=== PATIENT | female | born 1980 ===

== ENCOUNTER 2018-07-17 13:14 | Emergency (ER) | payer OTHER ==
[2018-07-17 13:47] VITALS: RESP 16
[2018-07-17 16:21] LABS: BASO # 0.1 K/uL (0.0-0.2); EOS # 0.1 K/uL (0.0-0.7); HEMOGLOBIN 12.8 g/dL (12.0-16.0); LYMPH # 3.1 K/uL (1.0-4.3); LYMPH % 25.5 % (20.0-40.0); MEAN CELL VOLUME 83.9 fl (81.0-99.0); MEAN CORPUSCULAR HEMOGLOBIN 27.9 pg (27.0-31.0); MEAN CORPUSCULAR HGB CONC 33.2 g/dL (33.0-37.0); MEAN PLATELET VOLUME 8.7 fl (7.2-11.7); MONO # 0.6 K/uL (0.0-0.8); MONO % 4.9 % (0.0-10.0); NEUT # 8.1 K/uL (1.8-7.0); NEUT % 67.6 % (50.0-75.0); NRBC % 0.1 % (0.0-0.0); RBC 4.6 Mil/uL (3.80-5.20); RED CELL DISTRIBUTION WIDTH 14.1 % (11.5-14.5); WHITE BLOOD COUNT 12.1 K/uL (4.8-10.8)
[2018-07-17 16:41] LABS: PROTHROMBIN TIME 11.2 Seconds (9.8-13.1)
--- NOTE | 2018-07-17 17:05 | US ---
Date of service: 07/17/2018 PROCEDURE: OB Pelvic Ultrasound HISTORY: Vaginal bleeding in COMPARISON: None available. FINDINGS: UTERUS: Single intrauterine gestational sac. Gestational sac diameter measures 0.5 cm too small to characterize gestational age. pole and yolk sac are not visualized. Desire-gestational hemorrhage: None. Uterus measures 9.5 x 5.1 x 7.3 cm. There is a 1.7 x 1.7 x 1.4 cm intramural fundal fibroid on the right and 8 x 5 x 6 mm calcified fibroid along the right lateral wall. CERVIX: Long and closed. No cervical abnormality seen. RIGHT OVARY: Measures 2.9 x 1.9 x 2.7 cm. No mass. Normal flow. There is a 1.8 x 0.8 x 1.3 cm corpus luteum cyst. LEFT OVARY: Measures 2.6 x 1.5 x 2.3 cm. No mass. Normal flow. FREE FLUID: None. OTHER FINDINGS: None. IMPRESSION: Single intrauterine gestational sac too small to characterize gestational age. pole and yolk sac are not visualized on the current examination. Clinical and ultrasound follow-up is recommended to assess viability. 1.7 cm intramural fundal fibroid and 8 mm calcified fibroid along the right lateral wall.
[2018-07-17 17:09] LABS: ALB/GLOB RATIO 1.3 (1.0-2.1); ALT/SGPT 40 U/L (9-52); AST/SGOT 33 U/L (14-36); BLOOD UREA NITROGEN 13 mg/dl (7-17); CALCIUM 9.2 mg/dL (8.4-10.2); GFR NON-AFRICAN AMERICAN > 60
--- NOTE | 2018-07-17 17:47 | ED PDOC ---
HPI: Female Pain Time Seen by Provider: 07/17/18 14:37 Chief Complaint (Nursing): Female Genitourinary Chief Complaint (Provider): Vaginal bleeding in History Per: Patient History/Exam Limitations: no limitations Onset/Duration Of Symptoms: Days Current Symptoms Are (Timing): Still Present Additional Complaint(s): 37 yo female, presents at 5 weeks gestion (LMP 06/07/18) for evaluation of suprapubic cramping and spotting. PT states she sees red blood coming from the vaginal when she wipes herself after urination. Pt states she has not made appointment with OB yet because her positive test was only w week ago. No fever/chills. Past Medical History Reviewed: Historical Data, Nursing Documentation, Vital Signs Vital Signs: Last Vital Signs Temp 98.6 F 07/17/18 13:44 Pulse 85 07/17/18 13:44 Resp 16 07/17/18 13:44 BP 140/72 07/17/18 13:44 Pulse Ox 99 07/17/18 13:44 - Medical History PMH: No Chronic Diseases - Surgical History Surgical History: Cholecystectomy - Family History Family History: States: No Known Family Hx - Living Arrangements Living Arrangements: With Family - Social History Current smoker - smoking cessation education provided: No - Allergies Allergies/Adverse Reactions: Allergies Allergy/AdvReac Type Severity Reaction Status Date / Time No Known Allergies Allergy Verified 07/17/18 13:44 Review of Systems ROS Statement: Except As Marked, All Systems Reviewed And Found Negative Constitutional: Negative for: Fever, Chills Gastrointestinal: Positive for: Abdominal Pain. Negative for: Nausea, Vomiting Genitourinary Female: Positive for: Vaginal Bleeding, Pelvic Pain. Negative for: Dysuria, Frequency, Vaginal Discharge Physical Exam - Reviewed Nursing Documentation Reviewed: Yes Vital Signs Reviewed: Yes - Physical Exam Appears: Positive for: Well, Non-toxic, No Acute Distress Head Exam: Positive for: ATRAUMATIC, NORMAL INSPECTION, NORMOCEPHALIC Skin: Positive for: Normal Color, Warm, DRY Eye Exam: Positive for: Normal appearance ENT: Positive for: Normal ENT Inspection Neck: Positive for: Normal, Painless ROM Cardiovascular/Chest: Positive for: Regular Rate, Rhythm Respiratory: Positive for: Normal Breath Sounds. Negative for: Accessory Muscle Use, Respiratory Distress Gastrointestinal/Abdominal: Positive for: Normal Exam, Soft. Negative for: Tenderness, Guarding, Rebound Back: Positive for: Normal Inspection Extremity: Positive for: Normal ROM Neurologic/Psych: Positive for: Alert, Oriented - Laboratory Results Result Diagrams: 07/17/18 16:06 07/17/18 16:06 - ECG O2 Sat by Pulse Oximetry: 99 Pulse Ox Interpretation: Normal Medical Decision Making Medical Decision Making: Beta Hc,038 US with gestational sac too small to characterize. Discussed early with patient and f/u in 2 days with OB for repeat labs. Disposition - Clinical Impression Clinical Impression: Bleeding in early - Patient ED Disposition Is Patient to be Admitted: No Counseled Patient/Family Regarding: Diagnosis, Need For Followup - Disposition Referrals: Sadie Castanon MD [Staff Provider] - Disposition: Routine/Home Disposition Time: 19:06 Condition: GOOD Additional Instructions: Please begin prenatals. Please follow-up with THERAPY SITE COORDINATOR in 2-3 days. Instructions: Bleeding With Forms: [facility] (Beninese) Print Language: ROMANIAN
[2018-07-17 19:40] VITALS: BP 118/68; PULSE 62; TEMP 97.9; O2SAT 100
== END 2018-07-17 19:40 | disposition home or self-care (01) ==
LOC: H.ER 13:14
DX: O46.90 Antepartum hemorrhage, unspecified, unspecified trimester (principal)

== ENCOUNTER 2018-08-16 09:09 | Emergency (ER) | payer SELFPAY ==
[2018-08-16 09:13] VITALS: BMI 24.1
[2018-08-16 09:15] VITALS: RESP 18; O2SAT 99
--- NOTE | 2018-08-16 10:34 | ED PDOC ---
HPI: Abdomen Time Seen by Provider: 08/16/18 09:25 Chief Complaint (Nursing): Female Genitourinary Chief Complaint (Provider): Lower abdominal pain and vaginal bleeding History Per: Patient History/Exam Limitations: no limitations Onset/Duration Of Symptoms: Days (vaginal bleeding x3; abdominal pain x1) Current Symptoms Are (Timing): Still Present Associated Symptoms: denies: Fever, Vomiting, Urinary Symptoms Additional Complaint(s): 37 year old female, who is , presents to the ED with lower abdominal pain and vaginal bleeding. Vaginal bleeding began on Sunday and abdominal pain began today. She reports bleeding was originally with blood clots but became dark discharge. She states she has lower abdominal pain and suprapubic pain which has been constant since this morning. Denies any urinary problems, fever, or vomiting. She reports she is 10 weeks . Patient did have an ultrasound for this in July which, patient thinks, did not show IUP. Patient has not begun care PMD: none Past Medical History Reviewed: Historical Data, Nursing Documentation, Vital Signs Vital Signs: Last Vital Signs Temp 99.1 F 08/16/18 09:14 Pulse 80 08/16/18 09:14 Resp 18 08/16/18 09:14 BP 113/74 08/16/18 09:14 Pulse Ox 99 08/16/18 09:14 - Medical History PMH: No Chronic Diseases - Surgical History Surgical History: Cholecystectomy - Family History Family History: States: Unknown Family Hx - Allergies Allergies/Adverse Reactions: Allergies Allergy/AdvReac Type Severity Reaction Status Date / Time No Known Allergies Allergy Verified 08/16/18 09:35 Review of Systems ROS Statement: Except As Marked, All Systems Reviewed And Found Negative Constitutional: Negative for: Fever Gastrointestinal: Positive for: Abdominal Pain. Negative for: Vomiting Genitourinary Female: Positive for: Vaginal Bleeding. Negative for: Dysuria, Hematuria Physical Exam - Reviewed Nursing Documentation Reviewed: Yes Vital Signs Reviewed: Yes - Physical Exam Appears: Positive for: Non-toxic, No Acute Distress Head Exam: Positive for: ATRAUMATIC, NORMOCEPHALIC Skin: Positive for: Normal Color, Warm, Dry Eye Exam: Positive for: Normal appearance Neck: Positive for: Normal, Painless ROM Cardiovascular/Chest: Positive for: Regular Rate, Rhythm Respiratory: Positive for: Normal Breath Sounds. Negative for: Wheezing, Respiratory Distress Gastrointestinal/Abdominal: Positive for: Tenderness (Suprapubic and LLQ te nderness) Extremity: Positive for: Normal ROM Neurologic/Psych: Positive for: Alert, Oriented. Negative for: Motor/Sensory Deficits - Laboratory Results Result Diagrams: 08/16/18 10:44 08/16/18 10:44 - ECG O2 Sat by Pulse Oximetry: 99 (RA) Pulse Ox Interpretation: Normal - Progress Re-evaluation Time: 12:59 Condition: Re-examined, Improved Medical Decision Making Medical Decision Making: Initial Impression: Abdominal pain and vaginal bleeding in female. Differential includes threatened miscarriage, spontaneous miscarriage, demise, UTI, and ovarian cysts Initial Plan: --ABO/RH type stat --Type and screen stat --BMP -- serum stat --ED urine --ED urine dipstick --CBC --OB transvaginal US 11:47 Transvaginal US FINDINGS: TECHNIQUE: Transvaginal ultrasonography of was performed in multiple projections and includes Doppler technique as well. UTERUS: Gestational sac: Single intrauterine gestation. Heart rate: 173 bpm. age (Ultrasound estimated): 9 weeks 5 days based on gestational sac and pole mean measurements of 4.35 and 2.85 respectively. Desire-gestational hemorrhage: There is questionable trace subchorionic hemorrhage anteriorly with no large hemorrhage evident nevertheless. Date of delivery (Ultrasound estimated) : 03/16/2019. Uterus measures 11.1 x 8.9 x 7.2 cm. Multiple uterine fibroids identified. A sub serosal fibroid is seen at the mid right fundus toward the right measuring 3.0 x 2.5 x 2.7 cm. A 2nd fibroid is identified sub serosal as well in the anterior mid fundus measuring 2.2 x 1.7 x 2.1 cm toward the left. Finally, a smaller partially calcified fibroid identified at the lower uterine segment sub serosal in location measuring 0.7 x 0.5 x 0.8 cm.. CERVIX: Measures 4.6 cm. Long and closed. No cervical abnormality seen. RIGHT OVARY: Measures 3.4 x 3.7 x 2.2 cm. No mass lesion. Normal flow. Corpus luteum cyst measures 2.3 cm greatest dimension. LEFT OVARY: Measures 4.0 x 2.4 x 1.9 cm. No solid mass. Normal flow. FREE FLUID: None. OTHER FINDINGS: None. IMPRESSION: A single viable intrauterine gestation is identified with average ultrasonic age of 9 weeks 5 days indicating normal interval growth, not previously seen on prior transvaginal pelvic ultrasound 07/17/2018. This is concordant with menstrual dates as well. Trace anterior subchorionic hemorrhage is suggested. Clinical correlation and potential follow-up ultrasound are advised. Four subserosal fibroids are identified at the uterine fundus as discussed above. Scribe Attestation: Documented by Meliton Reed acting as a scribe for Kelle Bell MD. Provider Scribe Attestation: All medical record entries made by the Scribe were at my direction and personally dictated by me. I have reviewed the chart and agree that the record accurately reflects my personal performance of the history, physical exam, [facility] decision making, and the department course for this patient. I have also personally directed, reviewed, and agree with the discharge instructions and disposition. Disposition - Clinical Impression Clinical Impression: Threatened , Subchorionic hemorrhage in first trimester, Uterine fibroid - Patient ED Disposition Is Patient to be Admitted: No Doctor Will See Patient In The: Office Counseled Patient/Family Regarding: Studies Performed, Diagnosis - Disposition Referrals: [facility] [Outside] Disposition: Routine/Home Disposition Time: 13:01 Condition: GOOD Additional Instructions: JERRI ROMAN, thank you for letting us take care of you today. Your provider was Kelle Bell MD and you were treated for 10 WEEKS,FEMALE GENITOURINARY. The emergency medical care you received today was directed at your acute symptoms. If you were prescribed any medication, please fill it and take as directed. It may take several days for your symptoms to resolve. Return to the Emergency Department if your symptoms worsen, do not improve, or if you have any other problems. Please contact your doctor or call one of the physicians/clinics you have been referred to that are listed on the Patient Visit Information form that is included in your discharge packet. Bring any paperwork you were given at discharge with you along with any medications you are taking to your follow up visit. Our treatment cannot replace ongoing medical care by a primary care marissa brumfield outside of the emergency department. Thank you for allowing the [facility] team to be part of your care today. If you had an X-Ray or CT scan: A Radiologist will review the ED reading if any change in treatment is needed we will contact you. If you had a blood, urine, or wound culture: It will take several days for the results, if any change in treatment is needed we will contact you. If you had an STI test: It will take 48 hours for the results. Please call after 1 week if you have not heard back. Instructions: Uterine Fibroids, Threatened Miscarriage Print Language: MARTINIQUAIS
[2018-08-16 10:50] LABS: BASO # 0.1 K/uL (0.0-0.2); BASO % 0.5 % (0.0-2.0); EOS # 0.1 K/uL (0.0-0.7); EOS % 0.9 % (0.0-4.0); HEMOGLOBIN 12.4 g/dL (12.0-16.0); LYMPH # 2.4 K/uL (1.0-4.3); LYMPH % 23.7 % (20.0-40.0); MEAN CELL VOLUME 84.3 fl (81.0-99.0); MEAN CORPUSCULAR HEMOGLOBIN 28.2 pg (27.0-31.0); MEAN CORPUSCULAR HGB CONC 33.4 g/dL (33.0-37.0); MEAN PLATELET VOLUME 8.2 fl (7.2-11.7); MONO # 0.6 K/uL (0.0-0.8); MONO % 5.9 % (0.0-10.0); RBC 4.41 Mil/uL (3.80-5.20); WHITE BLOOD COUNT 10.1 K/uL (4.8-10.8)
[2018-08-16 10:58] LABS: BLOOD UREA NITROGEN 12 mg/dl (7-17); CALCIUM 9.7 mg/dL (8.4-10.2); GFR NON-AFRICAN AMERICAN > 60
--- NOTE | 2018-08-16 11:51 | US ---
Date of service: 08/16/2018 PROCEDURE: OB Pelvic Ultrasound HISTORY: lower abd pain vag bleeding LMP: 06/06/2018 suggesting gestation of 10 weeks 1 day. COMPARISON: Transvaginal pelvic ultrasound 07/17/2018. FINDINGS: TECHNIQUE: Transvaginal ultrasonography of was performed in multiple projections and includes Doppler technique as well. UTERUS: Gestational sac: Single intrauterine gestation. Heart rate: 173 bpm. age (Ultrasound estimated): 9 weeks 5 days based on gestational sac and pole mean measurements of 4.35 and 2.85 respectively. Desire-gestational hemorrhage: There is questionable trace subchorionic hemorrhage anteriorly with no large hemorrhage evident nevertheless. Date of delivery (Ultrasound estimated) : 03/16/2019. Uterus measures 11.1 x 8.9 x 7.2 cm. Multiple uterine fibroids identified. A sub serosal fibroid is seen at the mid right fundus toward the right measuring 3.0 x 2.5 x 2.7 cm. A 2nd fibroid is identified sub serosal as well in the anterior mid fundus measuring 2.2 x 1.7 x 2.1 cm toward the left. Finally, a smaller partially calcified fibroid identified at the lower uterine segment sub serosal in location measuring 0.7 x 0.5 x 0.8 cm.. CERVIX: Measures 4.6 cm. Long and closed. No cervical abnormality seen. RIGHT OVARY: Measures 3.4 x 3.7 x 2.2 cm. No mass lesion. Normal flow. Corpus luteum cyst measures 2.3 cm greatest dimension. LEFT OVARY: Measures 4.0 x 2.4 x 1.9 cm. No solid mass. Normal flow. FREE FLUID: None. OTHER FINDINGS: None. IMPRESSION: A single viable intrauterine gestation is identified with average ultrasonic age of 9 weeks 5 days indicating normal interval growth, not previously seen on prior transvaginal pelvic ultrasound 07/17/2018. This is concordant with menstrual dates as well. Trace anterior subchorionic hemorrhage is suggested. Clinical correlation and potential follow-up ultrasound are advised. Four subserosal fibroids are identified at the uterine fundus as discussed above.
[2018-08-16 13:49] VITALS: BP 114/77; PULSE 89; TEMP 98
== END 2018-08-16 13:51 | disposition home or self-care (01) ==
LOC: H.ER 09:09
DX: O20.0 Threatened abortion (principal); O34.11 Maternal care for benign tumor of corpus uteri, first trimester; D25.2 Subserosal leiomyoma of uterus; Z3A.09 9 weeks gestation of pregnancy

== ENCOUNTER 2018-08-28 10:32 | Emergency (ER) | payer SELFPAY ==
[2018-08-28 10:32] VITALS: BMI 24.1
[2018-08-28] MEDS ORDERED: Sodium Chloride 0.9% 1,000 ML IV STA (11:49)
--- NOTE | 2018-08-28 12:55 | ED PDOC ---
HPI: Abdomen Time Seen by Provider: 08/28/18 11:30 Chief Complaint (Nursing): Abdominal Pain Chief Complaint (Provider): Abdominal Pain History Per: Patient Location Of Pain/Discomfort: Suprapubic Associated Symptoms: Urinary Symptoms (burning sensation while urinating). denies: Fever, Chills, Nausea, Vomiting Additional Complaint(s): Megan Wick is a 37 year old female with a past medical history of , who presents to the emergency department complaining of vaginal bleeding that consists of clots, associated with lower abdominal pain. Patient has been to the ED x2 previous times for vaginal bleeding during and has been discharged each time after evaluation. She is more concerned today because of the type of blood and the quantity of clots. Patient further states that she has had a burning sensation while she urinates. She further states that she is not on any medications and that her care doctor is the [facility]. Patient denies any fever, chills, nausea or vomiting. PMD: [facility] Past Medical History Reviewed: Historical Data, Nursing Documentation, Vital Signs Vital Signs: Last Vital Signs Temp 98.6 F 08/28/18 10:46 Pulse 74 08/28/18 10:46 Resp 18 08/28/18 10:46 BP 123/77 08/28/18 10:46 Pulse Ox 98 08/28/18 11:02 - Medical History PMH: No Chronic Diseases Denies: Chronic Kidney Disease - Surgical History Surgical History: Cholecystectomy - Family History Family History: States: Unknown Family Hx - Social History Current smoker - smoking cessation education provided: No Ex-Smoker (has not smoked in the last 12 months): No Alcohol: None - Allergies Allergies/Adverse Reactions: Allergies Allergy/AdvReac Type Severity Reaction Status Date / Time No Known Allergies Allergy Verified 08/16/18 09:35 Review of Systems ROS Statement: Except As Marked, All Systems Reviewed And Found Negative Constitutional: Negative for: Fever, Chills Gastrointestinal: Positive for: Abdominal Pain. Negative for: Nausea, Vomiting Genitourinary Female: Positive for: Vaginal Bleeding, Other (burning sensation while urinating) Physical Exam - Reviewed Nursing Documentation Reviewed: Yes Vital Signs Reviewed: Yes - Physical Exam Appears: Positive for: Non-toxic, No Acute Distress Head Exam: Positive for: ATRAUMATIC, NORMOCEPHALIC Skin: Positive for: Normal Color, Warm, Dry Eye Exam: Positive for: Normal appearance, EOMI, PERRL ENT: Positive for: Normal ENT Inspection Neck: Positive for: Normal, Painless ROM, Supple Cardiovascular/Chest: Positive for: Regular Rate, Rhythm. Negative for: Murmur Respiratory: Positive for: Normal Breath Sounds. Negative for: Respiratory Distress Gastrointestinal/Abdominal: Positive for: Tenderness (mild suprapubic discomfort) Back: Negative for: L CVA Tenderness, R CVA Tenderness Extremity: Positive for: Normal ROM. Negative for: Pedal Edema, Deformity Neurologic/Psych: Positive for: Alert, Oriented. Negative for: Motor/Sensory Deficits - ECG O2 Sat by Pulse Oximetry: 98 (RA) Pulse Ox Interpretation: Normal Medical Decision Making Medical Decision Making: Time: 1149 Impression: Vaginal bleeding --Rule out termination vs. spontaneous miscarriage Plan: --CMP --CBC with differential --Glucose, blood POC --Urinalysis --OB transvaginal US --IV insertion --Sodium chloride 1,000 ml Scribe Attestation: Documented by Robert Day, acting as a scribe for Karly Rivera MD. Provider Scribe Attestation: All medical record entries made by the Scribe were at my direction and personally dictated by me. I have reviewed the chart and agree that the record accurately reflects my personal performance of the history, physical exam, medical decision making, and the department course for this patient. I have also personally directed, reviewed, and agree with the discharge instructions and disposition. Disposition - Disposition Condition: FAIR
[2018-08-28 13:09] LABS: BASO # 0.1 K/uL (0.0-0.2); BASO % 0.7 % (0.0-2.0); EOS # 0.1 K/uL (0.0-0.7); HEMOGLOBIN 12.4 g/dL (12.0-16.0); LYMPH # 2.6 K/uL (1.0-4.3); LYMPH % 26.7 % (20.0-40.0); MEAN CELL VOLUME 87.4 fl (81.0-99.0); MEAN CORPUSCULAR HEMOGLOBIN 28.7 pg (27.0-31.0); MEAN CORPUSCULAR HGB CONC 32.8 g/dL (33.0-37.0); MEAN PLATELET VOLUME 8.4 fl (7.2-11.7); MONO # 0.6 K/uL (0.0-0.8); MONO % 6.6 % (0.0-10.0); NEUT # 6.4 K/uL (1.8-7.0); NRBC % 0.1 % (0.0-0.0); RBC 4.32 Mil/uL (3.80-5.20); WHITE BLOOD COUNT 9.8 K/uL (4.8-10.8)
[2018-08-28 13:20] LABS: ALB/GLOB RATIO 1.1 (1.0-2.1); ALBUMIN 3.8 g/dL (3.5-5.0); ALT/SGPT 30 U/L (9-52); AST/SGOT 18 U/L (14-36); BLOOD UREA NITROGEN 8 mg/dl (7-17); CALCIUM 9.2 mg/dL (8.4-10.2); GFR NON-AFRICAN AMERICAN > 60
--- NOTE | 2018-08-28 13:36 | US ---
Date of service: 08/28/2018 HISTORY: with vaginal bleeding, clots.. LMP 06/06/2018. COMPARISON: None available. TECHNIQUE: 08/16/2018 transvaginal FINDINGS: UTERUS: Measures 12.6 x 9.6 x 8.8 cm. A right fundal fibroid is suggested measuring 2.8 x 2.7 x 2.4 cm-this is unchanged.. Is also is slightly n anterior right uterine upper body/bordering fundal fibroid in location. The prior anterior subserosal fibroid with calcification currently measures 1.7 x 1.4 x 0.9 cm. Overall size is are similar to that mention previously. An intrauterine gestation with cardiac activity is present. heartbeat is 159 beats per minute. Gestational sac, yolk sac pole all present. These biometric parameters correspond to an 11 week 2 to 5 day gestation. There is suggestion of normal physiologic chorio amniotic separation noted on this exam as well. CERVIX: Closed at 4.3 cm in length RIGHT OVARY: Measures 4.1 x 2.1 x 1.8 cm. Corpus luteal focus suggested 1.9 x 1.5 x 1.1 cm. No worrisome appearing mass on the right seen. Normal flow seen. LEFT OVARY: Left ovary not visualized. FREE FLUID: No significant free fluid noted. OTHER FINDINGS: None. IMPRESSION: Single intrauterine gestation with normal cardiac activity whose biometrics correspond to an ultrasound age of 11 weeks 4 days +/-0 weeks 6 days. Estimated date of delivery is 03/15/2019 by ultrasound. These dates are concordant with the gestational age by LMP of 11 weeks 6 days. Uterine fibroids as above. Similar measurements. Close unremarkable appearing cervix. No gestational hemorrhage seen.Other findings as above.
--- NOTE | 2018-08-28 17:57 | ED PDOC ---
- Laboratory Results Result Diagrams: 08/28/18 12:09 08/28/18 12:09 Lab Results: Total Bilirubin 0.3 mg/dl (0.2-1.3) 08/28/18 12:09 AST 18 U/L (14-36) 08/28/18 12:09 ALT 30 U/L (9-52) 08/28/18 12:09 Alkaline Phosphatase 53 U/L (38-126) 08/28/18 12:09 Total Protein 7.3 G/DL (6.3-8.2) 08/28/18 12:09 Albumin 3.8 g/dL (3.5-5.0) 08/28/18 12:09 Globulin 3.5 gm/dL (2.2-3.9) 08/28/18 12:09 Albumin/Globulin Ratio 1.1 (1.0-2.1) 08/28/18 12:09 - ECG O2 Sat by Pulse Oximetry: 98 (RA) Medical Decision Making Medical Decision Making: Accession No. : [id number] Patient Name / ID : [id number] GUTHRIE / [id number] Exam Date : 08/28/2018 12:10:08 ( Approved ) Study Comment : Sex / Age : F / 37Y Creator : Mary Farias Dictator : Mary Farias Software Engineer Advisor : Communications Advisor : Mary Farias Approver2 : Report Date : 08/28/2018 13:32:59 My Comment : Date of service: 08/28/2018 HISTORY: with vaginal bleeding, clots.. LMP 06/06/2018. COMPARISON: None available. TECHNIQUE: 08/16/2018 transvaginal FINDINGS: UTERUS: Measures 12.6 x 9.6 x 8.8 cm. A right fundal fibroid is suggested measuring 2.8 x 2.7 x 2.4 cm-this is unchanged.. Is also is slightly n anterior right uterine upper body/bordering fundal fibroid in location. The prior anterior subserosal fibroid with calcification currently measures 1.7 x 1.4 x 0.9 cm. Overall size is are similar to that mention previously. An intrauterine gestation with cardiac activity is present. heartbeat is 159 beats per minute. Gestational sac, yolk sac pole all present. These biometric parameters correspond to an 11 week 2 to 5 day gestation. There is suggestion of normal physiologic chorio amniotic separation noted on this exam as well. CERVIX: Closed at 4.3 cm in length RIGHT OVARY: Measures 4.1 x 2.1 x 1.8 cm. Corpus luteal focus suggested 1.9 x 1.5 x 1.1 cm. No worrisome appearing mass on the right seen. Normal flow seen. LEFT OVARY: Left ovary not visualized. FREE FLUID: No significant free fluid noted. OTHER FINDINGS: None. IMPRESSION: Single intrauterine gestation with normal cardiac activity whose biometrics correspond to an ultrasound age of 11 weeks 4 days +/-0 weeks 6 days. Estimated date of delivery is 03/15/2019 by ultrasound. These dates are concordant with the gestational age by LMP of 11 weeks 6 days. Uterine fibroids as above. Similar measurements. Close unremarkable appearing cervix. No gestational hemorrhage seen.Other findings as above. Disposition - Clinical Impression Clinical Impression: Threatened - POA Present On Arrival: None - Disposition Disposition: Routine/Home Disposition Time: 19:08 Condition: STABLE Additional Instructions: FOLLOW-UP WITH OB-PATIENT ACCESS DIRECTOR WITHIN 2 DAYS FOR REEVALUATION. Instructions: Threatened Miscarriage Forms: [employer] (Ethiopian) Print Language: LATVIAN Addendum Addendum: 08/28/18 16:[address] Pt signed out [address] Rivera pending ultrasound.
[2018-08-28 18:43] LABS: URINE BILIRUBIN NEGATIVE (NEGATIVE); URINE BLOOD MODERATE (NEGATIVE); URINE CLARITY CLEAR (Clear); URINE COLOR COLORLESS (YELLOW); URINE GLUCOSE (UA) 150 mg/dL (NEGATIVE); URINE LEUKOCYTE ESTERASE NEG Leu/uL (Negative); URINE PROTEIN NEGATIVE (NEGATIVE); URINE UROBILINOGEN 0.2-1.0 mg/dL (0.2-1.0)
[2018-08-28 19:23] VITALS: BP 120/72; PULSE 68; RESP 17; TEMP 98.3
[2018-09-04 09:41] VITALS: O2SAT 98
== END 2018-08-28 19:15 | disposition home or self-care (01) ==
LOC: H.ER 10:32
DX: O20.0 Threatened abortion (principal); Z3A.11 11 weeks gestation of pregnancy; Z87.891 Personal history of nicotine dependence
CPT/HCPCS: 76817; 80053; 81003; 82948; 85025; 99285; J7030

== ENCOUNTER 2018-09-21 00:04 | Emergency (ER) | payer SELFPAY ==
[2018-09-21 00:04] VITALS: BMI 24.1
[2018-09-21 03:34] VITALS: BP 118/65; PULSE 86; RESP 18; TEMP 98.8; O2SAT 98
--- NOTE | 2018-09-21 03:50 | ED PDOC ---
HPI: CCC, URI, Sore Throat Time Seen by Provider: 09/21/18 02:14 Chief Complaint (Nursing): Flu-like Symptoms History Per: Patient Additional Complaint(s): Cough and congestion without fever x 1 week which has improved. Reports this evening she developed L sided earache and noticed blood in the L ear. Of note, pt. is . Denies fever, chest pain, SOB, hemoptysis, abd pain, vaginal bleeding. Past Medical History Reviewed: Historical Data, Nursing Documentation, Vital Signs Vital Signs: Last Vital Signs Temp 98.8 F 09/21/18 03:30 Pulse 86 09/21/18 03:30 Resp 18 09/21/18 03:30 BP 118/65 09/21/18 03:30 Pulse Ox 98 09/21/18 03:30 - Medical History PMH: Denies: Chronic Kidney Disease - Surgical History Surgical History: Cholecystectomy - Family History Family History: States: No Known Family Hx - Home Medications Home Medications: Ambulatory Orders Medication Instructions Recorded Neomycin/Polymyxin/Hydrocortis 4 drop AU TID #1 bottle 09/21/18 [Cortisporin Otic Susp] RX: Amoxicillin 875 mg PO BID #19 tablet 09/21/18 - Allergies Allergies/Adverse Reactions: Allergies Allergy/AdvReac Type Severity Reaction Status Date / Time No Known Allergies Allergy Verified 08/16/18 09:35 Review of Systems ROS Statement: Except As Marked, All Systems Reviewed And Found Negative ENT: Positive for: Ear Pain, Nose Congestion Respiratory: Positive for: Cough Physical Exam - Physical Exam Appears: Positive for: Well, Non-toxic, No Acute Distress Skin: Positive for: Normal Color, Warm. Negative for: Rash Eye Exam: Positive for: Normal appearance, EOMI, PERRL ENT: Positive for: TM Is/Are (L TM is erythematous and bulging, R TM WNL), Other (L ear canal with mild edema and exudate but TM is still visualized; R ear canal WNL; no mastoid tenderness or swelling). Negative for: Sinus Pain/Drainage, Pharyngeal Erythema, Tonsillar Exudate, Tonsillar Swelling Neck: Positive for: Normal, Painless ROM, Supple Cardiovascular/Chest: Positive for: Regular Rate, Rhythm. Negative for: Tachycardia Respiratory: Positive for: Normal Breath Sounds. Negative for: Rales, Wheezing, Respiratory Distress Gastrointestinal/Abdominal: Positive for: Soft (gravid). Negative for: Tenderness Neurologic/Psych: Positive for: Alert, Oriented (x3) - ECG O2 Sat by Pulse Oximetry: 98 - Progress ED Course And Treament: Case d/w Dr. Archer who recommends Cortisporin suspension ear drops for otitis externa. Amoxicillin PO, tylenol PO ordered. Disposition - Clinical Impression Clinical Impression: Otitis media, Otitis externa - Patient ED Disposition Is Patient to be Admitted: No - Disposition Referrals: [facility] [Outside] Disposition: Routine/Home Disposition Time: 03:00 Condition: STABLE Additional Instructions: FOLLOW UP WITH UP WITH PMD FOR FURTHER EVALUATION RETURN TO ED IMMEDIATELY IF SYMPTOMS WORSEN JERRI ROMAN, thank you for letting us take care of you today. Your provider was Janki Carter MD and you were treated for LT EAR PAIN,COUGH. The emergency medical care you received today was directed at your acute symptoms. If you were prescribed any medication, please fill it and take as directed. It may take several days for your symptoms to resolve. Return to the Emergency Department if your symptoms worsen, do not improve, or if you have any other problems. Please contact your doctor or call one of the physicians/clinics you have been referred to that are listed on the Patient Visit Information form that is included in your discharge packet. Bring any paperwork you were given at discharge with you along with any medications you are taking to your follow up visit. Our treatment cannot replace ongoing medical care by a primary care provider outside of the emergency department. Thank you for allowing the [facility] team to be part of your care today. If you had an X-Ray or CT scan: A Radiologist will review the ED reading if any change in treatment is needed we will contact you. If you had a blood, urine, or wound culture: It will take several days for the results, if any change in treatment is needed we will contact you. If you had an STI test: It will take 48 hours for the results. Please call after 1 week if you have not heard back. Prescriptions: RX: Amoxicillin 875 mg PO BID #19 tablet Neomycin/Polymyxin/Hydrocortis [Cortisporin Otic Susp] 4 drop AU TID #1 bottle Instructions: Ear Infections (Otitis Media) (DC), Outer Ear Infection (DC) Forms: [place] (Cypriot) Print Language: SERBIAN
== END 2018-09-21 03:35 | disposition home or self-care (01) ==
LOC: H.ER 00:04
DX: H66.90 Otitis media, unspecified, unspecified ear (principal)